=== PATIENT | female | born 1990 | race Caucasian/White ===

== ENCOUNTER 2023-11-11 09:12 | Emergency (ER) | payer OTHER, SELFPAY ==
[2023-11-11 09:13] VITALS: BP 100/81
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
== END 2023-11-11 10:14 | disposition home or self-care (01) ==
LOC: EMR 09:12
PROVIDERS: EMERGENCY PHYSICIAN Emergency Medicine; FAMILY PHYSICIAN Family Medicine
DX: S83.91XA Sprain of unspecified site of right knee, initial encounter (principal); W51.XXXA Accidental striking against or bumped into by another person, initial encounter
CPT/HCPCS: 99283; 29505; 73564

== ENCOUNTER 2023-11-19 20:40 | Emergency (ER) | payer OTHER, SELFPAY ==
[2023-11-19 21:00] VITALS: BP 115/71
[2023-11-20] MEDS: NUPERCAINAL 1% OINTMENT 1 APPLIC TOPICAL (01:05)
--- NOTE | 2023-11-20 01:32 | ED.GENMED ---
History of Present Illness
General
Chief Complaint: Bowel Problem
Source: patient
Exam Limitations: none
Time Seen by Provider: 11/19/23 23:27
Nursing documentation reviewed up to this point in time: agreed with
Travel History
Have you had any contact with someone who has COVID-19?: No
Do you have any symptoms of coronavirus? Fever > 100 degrees, chills, cough, shortness of breath, sore throat, loss of taste or smell, muscle aches, or headache?: No
History of Present Illness
History of Present Illness:
Patient presents to ED secondary to painful external hemorrhoid noted over the past 2 days. Patient has tried pmft-uff-fysogob medications along with sitz bath, without improvement symptoms. Patient unfortunately has had number of similar symptoms
in the past and has been evaluated by colorectal surgeon, including office-based procedure to remove the external hemorrhoid. Denies direct trauma. Denies abdominal pain. Denies nausea or vomiting.
Past History
Past History
ED Past Medical History: Other and Other (recent head injury)
ED Past Surgical History: None
Social History
Tobacco: Non-smoker
Alcohol: None
Personal: Single
Living: with family
Review of Systems
Review of Systems
Allergies reviewed?: Yes
All Other Systems: ROS reviewed and negative except as documented in HPI and ROS
Constitutional: Reports no symptoms; Denies fever
ABD/GI: Reports constipated and other (External hemorrhoid); Denies nausea or vomiting
Musculoskeletal: Reports no symptoms
Skin: Reports no symptoms
Neurological: Reports no symptoms
Phy Exam
Physical Exam
Physical Exam:
Physical Exam
General: mild painful distress, not acutely ill. afebrile
Head: nc/at. eomi
Neck: supple. normal range of motion.
Abdomen: normal bowel sounds. not tender.
Neuro: alert and oriented. no focal neurological deficits
Skin: (Marcia, RN, at bedside): an approx 2cm diameter nonthrombosed external hemorrhoid noted with moderate tenderness to palpation.
Psychiatric: well kept. interactive and cooperative
Extremities: no edema. no calf tenderness.
Course
Orders/Labs/Results
Orders:
Orders
11/20/23 00:52
Dibucaine [Nupercainal 1% Ointment] See Dose Instructions TOPICAL NOW STA
Vital Signs
Initial and Last Documented VS:
Initial Vital Signs
Temp Pulse Resp BP Pulse Ox
98.3 F 70 18 115/71 99
11/19/23 21:00 11/19/23 21:00 11/19/23 21:00 11/19/23 21:00 11/19/23 21:00
Last Documented Vital Signs
Temp Pulse Resp BP Pulse Ox
98.3 F 70 18 115/71 99
11/19/23 21:00 11/19/23 21:00 11/19/23 21:00 11/19/23 21:00 11/19/23 21:00
MDM/Problems Addressed
MDM/Problems Addressed:
History/exam consistent with painful, nonthrombosed external hemorrhoid. No indication for I&D at this time.
Patient will be treated symptomatically, via Dibucaine ointment along with sitz bath and stool softeners/laxatives as outpatient. Patient advised to call her colorectal surgeon, , for reevaluation.
Notified via [employer] - will notify office regarding outpatient f/u.
*Critical Care Note
Total Time (30-74mins, 75-104mins- exclusive of procedures): Not Applicable
ED Attending Note
-
Portions of this chart may have been created with voice recognition software.� Occasional wrong word or��sound alike� substitutions may have occurred due to the inherent limitations of voice recognition software.
Discharge Plan
Departure
Patient Disposition: Home (Routine Discharge)
Date of Disposition: 11/20/23
Time of Disposition: 01:32
Patient with high blood pressure during this ER visit?: No
Condition: Good
Discharge Problem:
External hemorrhoid
Instructions: Hemorrhoids (DC), How to Do a Sitz Bath
Prescriptions:
No Action
PNV cmb#95-ferrous fumarate-FA [] 1 EACH tablet
1 ea PO Daily
Iron
1 tab PO Daily
acetaminophen 325 MG tablet
650 mg PO Q4HPRN PRN (Reason: mild pain) 0RF
ibuprofen 600 MG tablet
600 mg PO Q4HPRN PRN (Reason: moderate pain/cramps) 0RF
Referrals:
Tomy Mendez MD [Active] -
Tomy Reynolds DO [Family Provider] -
Activity Restrictions/Additional Instructions:
As discussed, please follow-up with your colorectal surgeon for further evaluation and treatment.
Interventions
Interventions:
*Risk Screen - Suicide Last Done: 11/20/23 01:38
*General Assessment Last Done: 11/20/23 01:38
*Neglect/Abuse Screening Last Done: 11/20/23 01:38
ED- Fall Risk Assessment Last Done: 11/20/23 01:38
*ED COVID-19 Vaccine History Last Done: 11/20/23 01:38
*Nursing Disposition Last Done: 11/20/23 01:38
NQ-Blrdmk-Eutjzjanih Assessment Last Done: 11/20/23 01:37
Discharge Date and Time
Discharge Date/Time: 11/20/23 01:39
== END 2023-11-20 01:39 | disposition home or self-care (01) ==
LOC: EMR 20:40
PROVIDERS: EMERGENCY PHYSICIAN Emergency Medicine; FAMILY PHYSICIAN Family Medicine
DX: K64.4 Residual hemorrhoidal skin tags (principal)
CPT/HCPCS: 99282